=== PATIENT | female | born 1990 | race American Indian/Alaskan Native ===

== ENCOUNTER 2018-07-06 16:10 | Outpatient (CLI) | payer OTHER ==
[2018-07-06 16:36] VITALS: BP 114/67
[2018-07-06] MEDS ORDERED: LACTATED RINGERS 1,000 ML ONE (16:59)
[2018-07-06] MEDS ORDERED: ZOFRAN IM ONE (17:00)
[2018-07-06] MEDS ORDERED: LACTATED RINGERS 1,000 ML IV ONE (17:01)
[2018-07-06 19:43] LABS: Bacteria,Urine 1+ /HPF (Negative); Bilirubin,Urine NEG (Negative); Blood,Urine NEG (Negative); Color,Urine Yellow (Yellow); Protein,Urine <15 mg/dL mg/dL (Negative)
== END 2018-07-06 19:10 | disposition home or self-care (01) ==
LOC: TRG 16:10
PROVIDERS: ATTEND Obstetrics & Gynecology
DX: O47.1 False labor at or after 37 completed weeks of gestation (principal); Z3A.38 38 weeks gestation of pregnancy
CPT/HCPCS: 81001; J2405; J7120

== ENCOUNTER 2020-07-01 09:33 | Inpatient (IN) | payer OTHER ==
[2020-07-01] MEDS ORDERED: LOPERAMIDE 2 MG CAP PO PRN (10:23)
[2020-07-01] MEDS ORDERED: ePHEDrine SULFATE 50 MG/1 ML INJ IV PRN (10:23)
[2020-07-01] MEDS ORDERED: OXYTOCIN 10 UNIT/1 ML INJ IM PRN (10:23)
[2020-07-01] MEDS ORDERED: MINERAL OIL 30 ML ORAL LIQD PO PRN (10:23)
[2020-07-01] MEDS ORDERED: miSOPROStol 200 MCG TAB PR PRN (10:23)
[2020-07-01] MEDS ORDERED: CARBOPROST TROMETHAMINE 250 MCG/1 ML INJ IM PRN (10:23)
[2020-07-01] MEDS ORDERED: LACTATED RINGERS 1,000 ML IV SCH (10:30)
--- NOTE | 2020-07-01 10:31 | History and Physical Report ---
History of Present Illness Date of examination: 07/01/20 (Ctxs found to have elevated blood pressures) Date of admission: 07/01/2020 Chief complaint: I'm having ctxs. History of present illness: Pt states that she is having ctxs that started this morning and have gotten stronger. Upon admission to triage her blood pressures were noted to be 170's/90's. She has a history of pre eclampsia in last . EDC Confirmation: 07/09/2020 Gestational Age: 8 3/7 weeks Past History : 4 Term Births: 3 Premature Births: 0 Living Children: 3 Para: 3 Mult. Births: 0 Prev : 3 Prev. attempt? none Aborta: 0 Elect. Ab: 0 Spont. Ab: 0 Ectopics: 0 # 1 Delivery date: 2008 Weeks Gestation: 41 Delivery type: Infant Sex: Male weight: 8-11 Comments: Failure to progress # 2 Delivery date: 2011 Weeks Gestation: 38 Delivery type: Sex: Male weight: 7-11 # 3 Delivery date: 07/15/2018 Weeks Gestation: 39 Delivery type: Anesthesia type: epidural Delivery location: [facility] Sex: female weight: 8.75 Past Medical History: PreEclampsia Hypertension Past Surgical History: Reviewed history from 07/15/2018 and no changes required: negative X 3 Past Medical History Anesthesia Complications: negative Anemia: negative Autoimmune Disorder: negative Bleeding Disorder: negative Blood Transfusions: negative Breast Disease: negative Diabetes: negative Heart Disease: negative Hypertension: positive Hepatitis/Liver Disease: negative Kidney Disease/UTI: negative Neurologic/Epilepsy/Migraines: negative Phlebitis/Varicosities: negative Psychiatric: negative Pulmonary Disease/Asthma: negative Thyroid Disease: negative Hospitalizations: negative Surgery (Non-material distributor): negative X 3 Abnormal PAP: negative OSKAR Exposure: negative Infertility: negative Uterine Anomaly: negative Uterine Surgery (not C/S): negative Other Gynecologic Problems: negative Family Hx: Glaucoma, DM, HTN, CVA, Breast CA, Ovarian CA Social Hx: Marital Status: Children: 3 Occupation: unemployed Infection History Hx of STD: Trich HIV Risk Eval: low risk Hepatitis B Risk Eval: low risk Personal hx. of genital herpes: no Partner hx. of genital herpes: no Rash, Viral, or Febrile illness since last LMP? no Varicella/Chicken Pox Status: Immunized TB Risk: no Genetic History Congenital Heart Defect: Mom: no Dad: no Janet Disease: Mom: no Dad: no Thalassemia Mom: no Dad: no Neural Tube Defect Mom: no Dad: no Down's Syndrome Mom: no Dad: no Ashwin-Sachs Mom: no Dad: no Sickle Cell Disease/Trait Mom: no Dad: no Hemophilia Mom: no Dad: no Muscular Dystrophy Mom: no Dad: no Cystic Fibrosis Mom: no Dad: no Dhruv Chorea Mom: no Dad: no Mental Retardation Mom: no Dad: no Fragile X Mom: no Dad: no Other Genetic/Chromosomal Disorder Mom: no Dad: no Child w/other defect Mom: no Dad: no Enviromental Exposures Enviromental Exposures Reviewed Xray Exposure: no Medication, drug, or alcohol use since LMP: no Chemical/Other Exposure: no Exposure to Cat Liter: no Hx of Parvovirus (Fifth Disease): no Occupational Exposure to Children: none Active Medications (reviewed today): PLUS 27-1 MG ORAL TABLET ( VIT-FE FUMARATE-FA) 1 po qd FERROUSUL 325 (65 FE) MG ORAL TABLET (FERROUS SULFATE) Current Allergies (reviewed today): VICODIN (Critical) * ANAPHYYLAXIS (Critical) Past History Past Medical History: hypertension, other (Pre eclampsia in previous ) Past Surgical History: section (X 3) Family/Genetic History: diabetes, hypertension, stroke, cancer (Ovarian ), other (Glaucoma) Social history: no significant social history - Obstetrical History Expected Date of Delivery: 07/09/20 Actual Gestation: 38 Week(s) 6 Day(s) : 4 Para: 3 Hx # Term Pregnancies: 3 Number of Pregnancies: 0 Spontaneous Abortions: 0 Induced : 0 Number of Living Children: 3 Medications and Allergies Allergies Allergy/AdvReac Type Severity Reaction Status Date / Time acetaminophen [From Vicodin] Allergy Severe Anaphylaxis Verified 07/06/18 16:33 ceftizoxime [From Cefizox] Allergy Severe Anaphylaxis Verified 07/06/18 16:35 hydrocodone [From Vicodin] Allergy Severe Anaphylaxis Verified 07/06/18 16:33 Home Medications Medication Instructions Recorded Confirmed Last Taken Type Docusate Sodium [Colace] 100 mg PO BID PRN #60 capsule 07/01/20 Unknown Rx Ferrous Sulfate [Feosol 325 MG tab] 325 mg PO QDAY #60 tablet 07/01/20 Unknown Rx Ibuprofen [Motrin 800 MG tab] 800 mg PO Q8HR PRN #30 tablet 07/01/20 Unknown Rx Lidocain2.5%/Prilocai2.5% [Emla] 2 gm TP ONCE #1 tube 07/01/20 Unknown Rx oxyCODONE [roxiCODONE] 5 mg PO Q6HR PRN #30 tablet 07/01/20 Unknown Rx Active Meds: Active Medications Carboprost Tromethamine (Carboprost Tromethamine 250 Mcg/1 Ml Inj) 250 mcg IM ONCE PRN PRN Reason: Uterine Bleeding Citric Acid/Sodium Citrate (Bicitra Oral Liqd 30ml) 30 ml PO ONCE ONE Stop: 07/01/20 10:24 Ephedrine Sulfate (Ephedrine Sulfate 50 Mg/1 Ml Inj) 10 mg IV Q2M PRN PRN Reason: Hypotension Famotidine (Famotidine 20 Mg/2 Ml Inj) 20 mg IV ONCE ONE Stop: 07/01/20 10:24 Hydralazine HCl (Hydralazine 20 Mg/1 Ml Inj) 10 mg IV ONCE ONE Stop: 07/01/20 11:01 Lactated Ringer's (Lactated Ringers) 1,000 mls @ 125 mls/hr IV DIRECT MAXIMO Oxytocin/Sodium Chloride (Pitocin/Ns 30 Unit/500ml) 30 units in 500 mls @ 40 mls/hr IV TITR MAXIMO; Protocol Lactated Ringer's (Lactated Ringers) 1,000 mls @ 2,250 mls/hr IV PREOP MAXIMO Stop: 07/02/20 10:57 Cefazolin Sodium (Ancef/Sterile Water 2 Gm/20 Ml) 2 gm in 20 mls @ 80 mls/hr IV PREOP NR; Protocol Loperamide HCl (Loperamide 2 Mg Cap) 2 mg PO ONCE PRN PRN Reason: give with Hemabate Metoclopramide HCl (Metoclopramide 10 Mg/2 Ml Inj) 10 mg IV ONCE ONE Stop: 07/01/20 10:24 Mineral Oil (Mineral Oil 30 Ml Oral Liqd) 30 ml PO QHS PRN PRN Reason: Constipation Misoprostol (Misoprostol 200 Mcg Tab) 800 mcg MO ONCE PRN PRN Reason: Uterine Bleeding Oxytocin (Oxytocin 10 Unit/1 Ml Inj) 10 unit IM ONCE PRN PRN Reason: Uterine Bleeding Review of Systems All systems: negative - Vital Signs Vital signs: Vital Signs Pulse Pulse Ox 62 100 07/01/20 09:42 07/01/20 09:42 Temp Pulse Resp BP Pulse Ox 68 179/95 99 07/01/20 10:17 07/01/20 10:10 07/01/20 10:17 Pt denies POOLE, blurred vision, spots before her eyes, chest pain, shortness of breath, and upper abdominal pain. - Physical Exam Breasts: Positive: deferred Cardiovascular: Regular rate Lungs: Positive: Normal air movement Abdomen: Positive: normal appearance, soft, normal bowel sounds. Negative: distention, tenderness Genitourinary (Female): Positive: normal external genitalia, normal perenium Vulva: both: normal Vagina: Positive: normal moisture. Negative: discharge Cervix: Negative: lesion, discharge Uterus: Positive: normal size, normal contour Adnexa: both: normal Anus/Rectum: Positive: normal perianal skin, heme negative. Negative: rectal mass, hemorrhoids Extremities: Positive: normal Deep Tendon Reflex Grade: Normal +2 - Obstetrical FHR: category 1 Uterine Contraction Monitor Mode: External Cervical Dilatation: 0 Cervical Effacement Percentage: 0 station: -3 Uterine Contraction Pattern: Irregular Uterine Tone Measurement Phase: Resting Uterine Contraction Intensity: Mild Results Result Diagrams: 07/01/20 10:40 07/01/20 10:40 All other labs normal. GBS NEGATIVE LABS DRAWN AT FIRST VISIT: HBsAg Screen Negative Negative *1 RPR Non Reactive Non Reactive *2 Rubella Antibodies, IgG [L] <0.90 index Immune >0.99 *3 Non-immune <0.90 Equivocal 0.90 - 0.99 Immune >0.99 ABO Grouping O *4 Rh Factor Positive *5 Antibody Screen Negative Negative *6 WBC 9.1 x10E3/uL 3.4-10.8 *7 RBC 4.38 x10E6/uL 3.77-5.28 *8 Hemoglobin 11.1 g/dL 11.1-15.9 *9 Hematocrit 35.2 % 34.0-46.6 *10 MCV 80 fL 79-97 *11 MCH [L] 25.3 pg 26.6-33.0 *12 MCHC 31.5 g/dL 31.5-35.7 *13 RDW 15.3 % 11.7-15.4 *14 Platelets 286 x10E3/uL 150-450 *15 Neutrophils 66 % Not Estab. *16 Lymphs 24 % Not Estab. *17 Monocytes 9 % Not Estab. *18 Eos 1 % Not Estab. *19 Basos 0 % Not Estab. *20 ! Immature Cells <No Reported Value> *21 Neutrophils (Absolute) 5.9 x10E3/uL 1.4-7.0 *22 Lymphs (Absolute) 2.2 x10E3/uL 0.7-3.1 *23 Monocytes(Absolute) 0.9 x10E3/uL 0.1-0.9 *24 Eos (Absolute) 0.1 x10E3/uL 0.0-0.4 *25 Baso (Absolute) 0.0 x10E3/uL 0.0-0.2 *26 ! Immature Granulocytes 0 % Not Estab. *27 ! Immature Grans (Abs) 0.0 x10E3/uL 0.0-0.1 *28 ! NRBC <No Reported Value> *29 Hematology Comments: <No Reported Value> *30 Tests: (2) 431767 7+Alc-Unbund ([id number]) ! Amphetamines, Urine Negative ng/mL Jboams=8107 *31 Amphetamine test includes Amphetamine and Methamphetamine. Barbiturate Negative ng/mL Epzlug=159 *32 Benzodiazepines Negative ng/mL Wamtet=816 *33 Cannabinoid See Final Results ng/mL Cutoff=50 *34 Tests: (3) Cannabinoid Confirmation, Ur ([id number]) ! Cannabinoid [A] Positive Cutoff=50 *35 ! Carboxy THC GC/MS Conf 211 ng/mL Cutoff=15 *36 Tests: (4) 032152 7+Alc-Unbund (341036) ! Cocaine (Metab.) Negative ng/mL Umplfj=926 *37 Opiates Negative ng/mL Wmopsh=316 *38 Opiate test includes Codeine and Morphine only. Phencyclidine Negative ng/mL Cutoff=25 *39 ! Ethanol, Urine Negative % Cutoff=0.020 *40 Tests: (5) Comp. Metabolic Panel (14) ([id number]) Glucose 85 mg/dL 65-99 *41 BUN 7 mg/dL 6-20 *42 Creatinine 0.75 mg/dL 0.57-1.00 *43 ! eGFR If NonAfricn Am 109 mL/min/1.73 >59 *44 ! eGFR If Africn Am 125 mL/min/1.73 >59 *45 BUN/Creatinine Ratio 9 9-23 *46 Sodium 136 mmol/L 134-144 *47 Potassium 4.2 mmol/L 3.5-5.2 *48 Chloride 103 mmol/L 96-106 *49 Carbon Dioxide, Total [L] 18 mmol/L 20-29 *50 Calcium 9.2 mg/dL 8.7-10.2 *51 Protein, Total 6.4 g/dL 6.0-8.5 *52 Albumin [L] 3.8 g/dL 3.9-5.0 *53 Globulin, Total 2.6 g/dL 1.5-4.5 *54 A/G Ratio 1.5 1.2-2.2 *55 Bilirubin, Total 0.3 mg/dL 0.0-1.2 *56 Alkaline Phosphatase 61 IU/L 39-117 *57 AST (SGOT) 10 IU/L 0-40 *58 ALT (SGPT) 8 IU/L 0-32 *59 Tests: (6) LD Isoenzymes (185153) LDH 164 IU/L 119-226 *60 (LD) Fraction 1 27 % 17-32 *61 (LD) Fraction 2 34 % 25-40 *62 (LD) Fraction 3 22 % 17-27 *63 (LD) Fraction 4 8 % 5-13 *64 (LD) Fraction 5 9 % 4-20 *65 Tests: (7) Creatinine Clearance (362577) Creatinine, Urine 146.1 mg/dL Not Estab. *66 Creatinine, Ur 24hr 1607 mg/24 hr 800-1800 *67 Creatinine Clearance [H] 149 mL/min 88-128 *68 The above range is based on 1.73 square meter average body surface area. Tests: (8) Protein Total, Qn, 24-Hr Urine ([id number]) Protein,Total,Urine 21.7 mg/dL Not Estab. *69 Prot,24hr calculated [H] 239 mg/24 hr 30-150 *70 Tests: (9) HIV Ag/Ab with Reflex ([id number]) HIV Screen 4th Generation wRfx Non Reactive Non Reactive *71 Tests: (10) HCV Ab w/Rflx to Verification ([id number]) ! HCV Ab 0.1 s/co ratio 0.0-0.9 *72 Tests: (11) Comment: (868130) ! Comment: SPRCS *73 Non reactive HCV antibody screen is consistent with no HCV infection, unless recent infection is suspected or other evidence exists to indicate HCV infection. Tests: (12) Urine Culture, Routine ([id number]) Urine Culture, Routine Final report *74 Tests: (13) Result ([id number]) ! Result 1 No growth *75 Assessment and Plan 29 y.o. @ 38.6 wks, previous X3 (scheduled for 2/) presented to triage with c/o ctxs found to have elevated blood pressures 170's/90's. Consulted with Dr. Benson. Diagnosed with pre eclampsia. Pt to be admitted and prepped for rpt . probation and patrol agent aware. - Patient Problems (1) 38 to 41 weeks gestation of Onset Date: ~06/25/20 Current Visit: Yes Status: Acute Plan to address problem: EFM to monitor for distress. (2) Pre-eclampsia in third trimester Onset Date: ~07/01/20 Current Visit: Yes Status: Acute Plan to address problem: Admit to labor and delivery for pre eclampsia. Initiate IV. Draw Pre eclampsia labs Magnesium infusion ordered. Vigil catheter placement. Initiate Labetalol 200mg BID. (3) Previous delivery affecting Onset Date: ~07/01/20 Current Visit: Yes Status: Acute Plan to address problem: to be completed today d/t pre eclampsia. pre op medications ordered. RN to begin prep for .
[2020-07-01] MEDS ORDERED: BUPIVACAINE/PF (0.5%) 5 MG/1 ML 30 ML VIAL INFILTRATI ONE (10:45)
[2020-07-01] MEDS ORDERED: KETOROLAC 30 MG/1 ML INJ ONE (10:45)
[2020-07-01] MEDS ORDERED: BUPIVACAINE /DEX-WATER 0.75% (2 ML) AMPULE INFILTRATI ONE (10:45)
[2020-07-01] MEDS ORDERED: ONDANSETRON 4 MG/2 ML INJ ONE (10:45)
[2020-07-01] MEDS ORDERED: dexAMETHasone 20 MG/5 ML VIAL ONE (10:47)
[2020-07-01 10:56] LABS: Hematocrit 31.1 % (30.3-42.9); Hemoglobin 10.3 gm/dl (10.1-14.3); Mean Corpuscular HGB Conc 33 % (30-34); Mean Corpuscular Volume 78 fl (79-97); Platelet Count 203 K/mm3 (140-440); Red Blood Count 3.96 M/mm3 (3.65-5.03); Red Cell Distribution Width 16.9 % (13.2-15.2)
[2020-07-01] MEDS ORDERED: MAGNESIUM SULFATE 4 GM/100 ML BAG IV ONE (11:00)
[2020-07-01] MEDS ORDERED: OXYTOCIN DRIP 30 UNITS/500 ML BAG IV SCH (11:00)
[2020-07-01] MEDS ORDERED: BICITRA ORAL LIQD 30ML PO ONE (11:00)
[2020-07-01] MEDS ORDERED: FAMOTIDINE 20 MG/2 ML INJ IV ONE (11:00)
[2020-07-01] MEDS ORDERED: ceFAZolin/Water 2 GM/20 ML 2 GM/20 ML SYRINGE IV NR (11:00)
[2020-07-01] MEDS ORDERED: hydrALAZINE 20 MG/1 ML INJ IV ONE (11:00)
[2020-07-01 11:19] LABS: Alanine Aminotransferase 11 units/L (7-56)
[2020-07-01] MEDS ORDERED: HYDROmorphone 1 MG/1 ML INJ IV PRN (11:26)
[2020-07-01] MEDS ORDERED: ONDANSETRON 4 MG/2 ML INJ IV PRN (11:26)
[2020-07-01] MEDS ORDERED: diphenhydrAMINE 50 MG/ML VIAL IV PRN (11:26)
[2020-07-01] MEDS ORDERED: PROMETHAZINE 25 MG TAB PO PRN (11:26)
[2020-07-01] MEDS ORDERED: NalbUPHINE 10 MG/1 ML INJ IV PRN (11:26)
[2020-07-01] MEDS ORDERED: PROMETHAZINE 25 MG RECT SUPP PR PRN (11:26)
[2020-07-01] MEDS ORDERED: NALOXONE 0.4 MG/1 ML INJ IV PRN ×2 (11:26→13:29)
--- NOTE | 2020-07-01 11:27 | Anesthesia Day of Surgery ---
Anesthesia Day of Surgery - Day of Surgery Patient Examined: Yes Patient H&P Reviewed: Yes Patient is NPO: Yes Beta Blockers: No Cardiac Clearance: No Pulmonary Clearance: No Yaya's Test: N/A
--- NOTE | 2020-07-01 11:28 | Anesthesia Consultation ---
Anesthesia Consult and Med Hx Date of service: 07/01/20 - Airway Anesthetic Teeth Evaluation: Good Mallampati Class: Class III Intubation Access Assessment: Possibly Difficult - Pulmonary Exam CTA: Yes - Cardiac Exam Cardiac Exam: RRR - Pre-Operative Health Status ASA Pre-Surgery Classification: ASA2 Proposed Anesthetic Plan: Spinal Nerve Block: TAP - Pulmonary Hx Smoking: No Hx Asthma: No COPD: No Hx Pneumonia: No Hx Sleep Apnea: No - Cardiovascular System Hx Hypertension: No Hx Heart Attack/AMI: No Hx Angina: No - Central Nervous System Hx Seizures: No Hx Psychiatric Problems: No - Gastrointestinal Hx Gastroesophageal Reflux Disease: No - Endocrine Hx Renal Disease: No Hx End Stage Renal Disease: No Hx Insulin Dependent Diabetes: No Hx Non-Insulin Dependent Diabetes: No Hx Hypothyroidism: No Hx Hyperthyroidism: No - Hematic Hx Anemia: No Hx Sickle Cell Disease: No - Other Systems Hx Alcohol Use: No Hx Obesity: Yes
[2020-07-01] MEDS ORDERED: WATER FOR IRRIG STERILE 1,500 ML BOTTLE IR ONE (11:55)
[2020-07-01] MEDS ORDERED: SODIUM CHLORIDE 0.9% IRR 1,500 ML BOTTLE IR ONE (11:55)
[2020-07-01] MEDS ORDERED: METOCLOPRAMIDE 10 MG/2 ML INJ IV ONE (12:00)
--- NOTE | 2020-07-01 12:05 | Progress Note ---
Spinal Anesthesia Block - Spinal Anesthesia Block Start Time: 11:30 Stop Time: 11:40 Performed by:: JAIR CRAIG (Arlin DAMON) Procedure: Spinal anesthesia block is being performed for [C/S]. H&P, labs have been reviewed. Patient's questions and concerns have been answered. Informed consent has been performed. Timeout has was performed. Patient in sitting position on side of bed. Sterile prep and drape was performed. 3 mL 1% l idocaine skin wheal at L [3]-L [4]. Needle introducer advanced. 25-gauge spinal needle advanced, [+] CSF [-] blood. [Marcaine 12.75mg and Precedex 5mcg] Spinal dose was given. All needles removed. Patient tolerated procedure well.
[2020-07-01] MEDS ORDERED: LACTATED RINGERS 1,000 ML ONE (12:10)
[2020-07-01] MEDS ORDERED: PHENYLEPHRINE/NS 1,000 MCG/10 ML SYRINGE (OR USE) IV ONE (12:10)
[2020-07-01] MEDS ORDERED: LANOLIN/ZINC/DIMETHICONE (LANSINOH) 7 GM TP PRN (13:29)
[2020-07-01] MEDS ORDERED: WITCH HAZEL/ GLYCERIN PAD TP PRN (13:29)
--- NOTE | 2020-07-01 13:35 | Event Note ---
Date: 07/01/20 Pt states she has taken percocet in the past w/o any reaction, however, will change pain meds to oxycodone w/o the acetominophen.
--- NOTE | 2020-07-01 13:47 | Operative Report ---
Operative Report Operative Report: Date of procedure: 07/01/2020 Pre-operative diagnosis: 39 weeks gestation Elevated blood pressures Previous section x3 Desires permanent sterilization Family history of ovarian cancer Post-operative diagnosis: Same Procedure name(s): Repeat low transverse section via Pfannenstiel skin incision Bilateral tubal ligation via bilateral salpingectomy Surgeon: Dr. Benson Grain Picker: Feli Lopes CNM Anesthesia: Spinal EBL: 600 mL Urine output: 50 mL of clear urine out at end of procedure Fluids: 1350 mL Findings: Liveborn male infant weight 6 pounds 0 ounces Apgars of 8 and 9 at 1 and 5 minutes Grossly normal fallopian tubes bilaterally however some adhesions of the fallopian tube to the left adnexa on the left side Grossly normal ovaries bilaterally Normal uterus Indications: Patient presents for evaluation in triage for contractions was noted to have elevated blood pressures however was not noted to be in labor. It was decided at this time to proceed with delivery due to blood pressures being in the severe range all risk benefits and alternatives were discussed with the patient. Consents were signed and placed on the chart. Procedure: Patient was taking to the operating room. Patient was then prepped and draped in sterile fashion after anesthesia was found to be adequate. A low transverse skin incision was made with the scalpel through previous incisional scar and carried down to the underlying layer of fascia with the Bovie. The fascia was then incised in the midline and this incision was extended bilaterally with the Bovie. The superior aspect of the fascia was grasped with Kuldeep clamps tented upward and dissected off of the anterior rectus muscles with the scalpel. In similar fashion the inferior aspect of the fascia was grasped with Kuldeep clamps tented upward and dissected off of the anterior rectus muscles. The rectus muscles were then bluntly divided in the midline. The peritoneum was identified and entered into sharply.[The Omar retractor was placed.] A lower transverse uterine incision was made with the scalpel and extended bilaterally with blunt dissection. Artificial rupture of membranes was performed yielding [clear amniotic fluid]. The infant's head was then delivered atraumatically. The anterior shoulder and rest of infant delivered without difficulty. The umbilical cord was clamped x2. The cord was cut. The was then placed in sterile bassinet. [The cord blood was collected.] The plac enta was manually extracted in its entirety. The uterus was exteriorized and cleared of all clots and debris. The uterine incision was closed using 0 Vicryl in a running locking fashion. Several oeluro-nc-cfsnx sutures were used along incision line to secure excellent hemostasis.. Attention was then turned to the fallopian tubes. Fallopian tube was elevated cauterized transected and removed in its entirety. Fallopian tube was handed off for pathology. This was done bilaterally. Excellent hemostasis was noted bilaterally. The posterior cul-de-sac was copiously irrigated. The uterus was returned to the abdomen. The gutters were also irrigated. The Omar retractor was removed from the abdomen. The anterior rectus muscles were reapproximated using 3-0 Vicryl. The anterior rectus fascia was reapproximated using 0 Vicryl in a running fashion. The subcuticular fat was reapproximated using 2-0 Vicryl in a running fashion. The skin was reapproximated with a 4-0 Monocryl with a subcuticular stitch.. The patient tolerated the procedure well. Sponge lap and needle counts were all correct x3. Patient was taken to the recovery room awake and in stable condition.
[2020-07-01] MEDS: MAGNESIUM SULFATE 40GM/1000ML 40 GM/1,000 ML BAG IV SCH (14:04)
--- NOTE | 2020-07-01 16:30 | Post Anesthesia Evaluation ---
- Post Anesthesia Evaluation Patient Participated: Yes Airway Patent: Yes Stable Respiratory Function: Yes Nausea/Vomiting: No Temp > 96.8F: Yes Pain Manageable: Yes Adequeate Hydration: Yes Anesthesia Complications: No Block Receding Appropriately: Yes Patient on Ventilator: No
[2020-07-01] MEDS: ceFAZolin/NS 1 GM/50 ML 1 GM/50 ML BAG IV SCH (16:35)
[2020-07-01] MEDS: LACTATED RINGERS 1,000 ML IV SCH (20:20)
[2020-07-01 20:31] LABS: Bilirubin,Urine NEG (Negative); Blood,Urine LG (Negative); Color,Urine Yellow (Yellow); Mucus,Urine 1+ /HPF; Protein,Urine <15 mg/dL mg/dL (Negative); Urobilinogen,Urine < 2.0 mg/dL (<2.0)
[2020-07-01 20:33] LABS: RBC,Urine > 182.0 /HPF (0.0-6.0)
[2020-07-01] MEDS: SIMETHICONE 80 MG CHEW TAB PO PRN (22:20)
[2020-07-01] MEDS: KETOROLAC 30 MG/1 ML INJ IV PRN (22:20)
[2020-07-02] MEDS: ceFAZolin/NS 1 GM/50 ML 1 GM/50 ML BAG IV SCH (00:30)
[2020-07-02 01:38] LABS: Hematocrit 31.4 % (30.3-42.9)
[2020-07-02] MEDS: KETOROLAC 30 MG/1 ML INJ IV PRN (04:00)
--- NOTE | 2020-07-02 06:28 | Progress Note ---
Assessment and Plan Pt A&O X 3 Only c/o is being hungry. BP 160/90 Denies POOLE, blurred vision, chest pain. Baby to breast on rounds. Dressing D&I Will consult @ increasing Labetalol to 300BID Continue pathway Complete 24hrs MGSO4 Labetalol 300mg po BID ordered Subjective - Subjective Date of service: 07/02/20 ("I'm hungry!") Principal diagnosis: Day#1 s/p repeat c/s; PreE MGSO4 Patient reports: voiding normally (clear yellow urine to folley), pain well controlled : doing well (pt caring for NB) Objective - Vital Signs Latest vital signs: Vital Signs Temp Pulse Resp BP Pulse Ox 07/02/20 06:06 64 160/91 07/02/20 05:57 65 163/90 07/02/20 05:30 98.0 F 18 07/02/20 04:57 71 138/85 07/02/20 03:57 71 163/90 07/02/20 02:57 71 152/88 07/02/20 01:57 65 137/81 07/02/20 00:57 66 162/92 07/02/20 00:30 97.7 F 18 07/01/20 23:57 67 136/81 07/01/20 22:57 71 131/76 07/01/20 22:26 64 158/89 07/01/20 21:57 71 186/106 07/01/20 20:57 66 166/94 07/01/20 20:10 98.2 F 20 07/01/20 19:57 74 131/87 07/01/20 17:57 72 147/64 07/01/20 16:57 64 136/76 07/01/20 16:05 97.9 F 20 07/01/20 15:57 72 121/79 07/01/20 15:06 57 L 128/80 07/01/20 14:25 65 20 133/77 99 07/01/20 14:20 97.4 F L 63 18 144/88 98 07/01/20 14:05 56 L 18 142/84 98 07/01/20 13:50 52 L 18 145/93 98 07/01/20 13:35 65 21 150/102 96 07/01/20 13:29 49 L 15 124/79 99 07/01/20 13:26 51 L 18 119/65 98 07/01/20 13:23 97 F L 52 L 15 125/63 99 07/01/20 11:04 74 196/96 07/01/20 10:57 191/117 07/01/20 10:55 59 L 191/117 07/01/20 10:17 68 99 07/01/20 10:12 85 99 07/01/20 10:10 62 179/95 07/01/20 10:07 66 100 07/01/20 10:02 56 L 99 07/01/20 09:57 64 99 07/01/20 09:52 66 99 07/01/20 09:47 71 99 07/01/20 09:45 62 153/90 07/01/20 09:44 58 L 171/92 07/01/20 09:42 62 100 Intake and Output 07/01/20 07/01/20 07/02/20 14:59 22:59 06:59 Intake Total 1600 50 Output Total 367 534 0259 Balance 1449 Intake: IV 1600 50 ANCEF/NS 1 GM/50 ML 1 gm 50 In 50 ml @ 100 mls/hr IV Q8H [facility] Rx#:[id number] Output: Urine 559 415 7812 Indwelling Catheter 1974 Other: Total, Output Amount 600 550 Weight 239 lb Estimated Blood Loss 600 Patient Weight 07/02/20 06:59 Weight 239 lb - Exam Breasts: Present: normal Cardiovascular: Present: Regular rate Lungs: Present: Normal air movement Abdomen: Present: normal appearance, soft, normal bowel sounds Uterus: Present: normal, fundal height below umbilicus Extremities: Present: normal Incision: Present: normal, dry, intact, dressed - Labs Labs: Abnormal lab results 07/01/20 07/01/20 07/01/20 Range/Units 10:40 10:40 19:35 Hgb (10.1-14.3) gm/dl MCV 78 L (79-97) fl MCH 26 L (28-32) pg RDW 16.9 H (13.2-15.2) % Creatinine 0.5 L (0.6-1.2) mg/dL Magnesium 4.20 H (1.7-2.3) mg/dL Lactate Dehydrogenase 240 H (91-180) units/L Urine WBC (Auto) (0.0-6.0) /HPF 07/01/20 07/02/20 07/02/20 Range/Units 20:05 00:43 00:43 Hgb 10.0 L (10.1-14.3) gm/dl MCV (79-97) fl MCH (28-32) pg RDW (13.2-15.2) % Creatinine (0.6-1.2) mg/dL Magnesium 4.60 H (1.7-2.3) mg/dL Lactate Dehydrogenase (91-180) units/L Urine WBC (Auto) 9.0 H (0.0-6.0) /HPF
[2020-07-02] MEDS ORDERED: oxyCODONE /ACETAMINOPHEN 5-325MG TAB PO PRN (07:00)
[2020-07-02] MEDS: FERROUS SULFATE 325 MG TAB PO SCH (09:33)
[2020-07-02] MEDS: LACTATED RINGERS 1,000 ML IV SCH (10:35)
[2020-07-02] MEDS: MAGNESIUM SULFATE 40GM/1000ML 40 GM/1,000 ML BAG IV SCH (10:35)
[2020-07-02] MEDS ORDERED: DIPHtheria,PERTUSSIS(ACELL),TETANUS VACCINE/PF 0.5 ML VIAL IM ONE (13:30)
[2020-07-02] MEDS: oxyCODONE 5 MG TAB PO PRN (18:08)
[2020-07-02] MEDS: IBUPROFEN 800 MG TAB PO PRN (22:50)
[2020-07-03] MEDS: IBUPROFEN 800 MG TAB PO PRN ×2 (05:35→23:14)
[2020-07-03] MEDS: oxyCODONE 5 MG TAB PO PRN ×2 (05:48→20:42)
--- NOTE | 2020-07-03 08:14 | Progress Note ---
Assessment and Plan p doing well, carn for 's needs this morning. incision D&I, steristrips in place, fundus firm, lochia scant, postop H&H stable, no s/s anemia. b/p's 120-150's/70-90's on labetalol 300mg BID. denies POOLE, visual changes or epigastric pain. - Patient Problems (1) delivery delivered Current Visit: Yes Status: Acute Plan to address problem: advance activity as tolerated anticipate d/c home tomorrow if stable. (2) Pre-eclampsia in third trimester Onset Date: ~07/01/20 Current Visit: Yes Status: Acute Plan to address problem: s/p mag sulfate for neuro protection cont labetalol and monitoring blood pressures monitor or worsening s/s pre-e Subjective - Subjective Date of service: 07/03/20 Principal diagnosis: Day#2 s/p repeat c/s; PreE s/p MGSO4x 24hrs Patient reports: appetite normal, voiding normally, pain well controlled, flatus, ambulating normally, no dizzy ambulation, no nauseated : doing well, nursing well Objective - Vital Signs Latest vital signs: Vital Signs Temp Pulse Resp BP BP BP Pulse Ox 07/03/20 05:03 98.2 F 83 18 146/86 98 07/03/20 00:22 98.2 F 89 20 128/71 99 07/02/20 22:51 82 149/84 07/02/20 20:35 97.9 F 66 18 144/84 98 07/02/20 17:58 98.8 F 67 18 146/86 07/02/20 14:50 98.0 F 70 19 143/80 99 07/02/20 14:27 98.0 F 66 14 140/86 140/86 07/02/20 12:53 66 142/90 07/02/20 12:50 67 142/90 07/02/20 11:51 97.8 F 66 18 151/90 97 07/02/20 11:50 66 151/90 07/02/20 11:17 75 141/99 07/02/20 10:56 68 149/80 07/02/20 10:47 72 162/97 07/02/20 10:17 78 138/82 07/02/20 09:47 71 137/86 07/02/20 09:17 74 142/82 07/02/20 08:47 68 135/83 07/02/20 08:17 77 141/84 Intake and Output 07/02/20 07/03/20 07/03/20 23:59 07:59 15:59 Intake Total 680 480 Output Total 300 Balance 380 480 Intake: Oral 560 Intake, Free Water 120 480 Output: Urine 300 Void 300 Other: Total, Intake Amount 320 Total, Output Amount 300 # Voids Void 1 2 - Exam Breasts: Present: normal, Cardiovascular: Present: Regular rate Lungs: Present: Clear to auscultation, Normal air movement Abdomen: Present: normal appearance, soft. Absent: distention, tenderness Vulva: both: normal Uterus: Present: normal, firm, fundal height at umbilicus Extremities: Present: normal Deep Tendon Reflex Grade: Normal +2 Incision: Present: normal, dry, intact - Labs Labs: Abnormal lab results 07/02/20 07/02/20 07/02/20 Range/Units 07:22 11:40 18:55 Magnesium 5.50 H 5.60 H 3.60 H (1.7-2.3) mg/dL
[2020-07-03] MEDS: FERROUS SULFATE 325 MG TAB PO SCH (09:05)
[2020-07-03] MEDS: SIMETHICONE 80 MG CHEW TAB PO PRN ×2 (09:05→16:19)
[2020-07-03] MEDS ORDERED: MEASLES, MUMPS & RUBELLA 12,500 UNIT/0.5 ML VACCINE SUB-Q ONE (12:00)
[2020-07-03] MEDS ORDERED: FLU VACC QUAD 2020-2021 (6 months +)/PF 60 0.5 ML SYRINGE IM ONE (12:00)
--- NOTE | 2020-07-03 15:33 | Event Note ---
Date: 07/03/20 Pt still with elevated BPs on the Labetalol 300 mg bid. Will add procardia 30xl at this time q day and monitor for now. pt had prE with previous delivery that developed pp. Will want optimal BP control prior to d/c home.
[2020-07-03] MEDS: NIFEdipine XL 30 MG TAB PO SCH (16:01)
[2020-07-03 16:49] LABS: Amphetamine Screen,Urine Negative; Benzodiazepines Screen,Urine Negative; Cocaine Screen,Urine Negative; Methadone Screen,Urine Negative; Opiate Screen,Urine Negative
[2020-07-03 17:02] LABS: Cannabinoid Screen,Urine Positive
[2020-07-04] MEDS: oxyCODONE 5 MG TAB PO PRN ×3 (05:20→16:13)
--- NOTE | 2020-07-04 05:42 | Event Note ---
Date: 07/04/20 It appears had uds done that was positive for marijuana. Pt had uds orderd under this provider's name without this provider being aware that was also + for marijuana. As per notes, social sciences research scientist were contacted and complete consultation is pending.
[2020-07-04] MEDS: FERROUS SULFATE 325 MG TAB PO SCH (10:54)
[2020-07-04] MEDS: NIFEdipine XL 30 MG TAB PO SCH (10:54)
--- NOTE | 2020-07-04 12:21 | Discharge Summary ---
Providers - Providers Date of Admission: 07/01/20 10:30 Date of discharge: 07/04/20 (Pt desires to be discharged home.) Attending physician: ADAM CHENEY Primary care physician: DONNA PEDERSEN Hospitalization Reason for admission: other (Contractions, elevated blood pressures in triage) Delivery: Procedure: bilateral tubal ligation, repeat low transverse Episiotomy: none Laceration: none Incision: normal, dry, intact, other (No s/sx of infection noted. No drainage noted. ) Discharge diagnosis: IUP at term delivered [place] baby: male Pertinent studies: Pt denies POOLE blurred vision, spots before her eyes, chest pain, shortness of breath, and upper abdominal pain. Her blood pressure ranges since this AM have been 114-140's/60-80's. We discussed how to take a proper blood pressure and when to call the provider with questions and concerns. We also discussed taking blood pressure medication daily. During this hospital stay, pt tested positive for marijuana and has been seen by the manager social media. Per manager social media note, pt will have a follow up with [facility]. Hospital course: S: Pt doing well. Ambulating, voiding, and passing flatus okay. BC: BTL. O: VSS. I&O's adequate. Fundus firm, minimal bleeding noted. Incision: steri strips intact, no s/sx of infection, no drainage noted. H/H 10.0/31.4. A: 29 y.o. s/p rpt . S/p magnesium d/t pre eclampsia. In good condition and stable for discharge home. P: Discharge home with instructions. To schedule son's circumcision appointment in 1 week. To keep scheduled post op check in on Jul 12. Condition at discharge: Good Disposition: DC-01 TO HOME OR SELFCARE Plan - Discharge Medications Prescriptions: Docusate Sodium [Colace] 100 mg PO BID PRN #60 capsule PRN Reason: Constipation Lidocain2.5%/Prilocai2.5% [Emla] 2 gm TP ONCE #1 tube Ferrous Sulfate [Feosol 325 MG tab] 325 mg PO QDAY #60 tablet Labetalol HCl [Labetalol 300mg TAB] 300 mg PO BID #60 tablet Ibuprofen [Motrin 800 MG tab] 800 mg PO Q8HR PRN #30 tablet PRN Reason: Pain, Moderate (4-6) NIFEdipine XL [Procardia Xl] 30 mg PO QDAY #30 tablet oxyCODONE [roxiCODONE] 5 mg PO Q6HR PRN #30 tablet PRN Reason: Pain - Provider Discharge Summary Activity: routine, no sex for 6 weeks, no heavy lifting 4 weeks, no strenuous exercise Diet: routine Instructions: routine Additional instructions: [] Smoking cessation referral if applicable(refer to patient education folder for contact #) [] Refer to [facility]'s [facility] Booklet Call your doctor immediately for: * Fever > 100.5 * Heavy vaginal bleeding ( >1 pad per hour) * Severe persistent headache * Shortness of breath * Reddened, hot, painful area to leg or breast * Drainage or odor from incision. * Keep incision clean and dry at all times and follow doctor's instructions regarding bathing/showering Congratulations on your baby boy! Please keep your post op appointment that was scheduled on 07/12 so that we may check your incision and your blood pressure. Please schedule your son's circumcision appointment in 1 week. You have been prescribed EMLA cream. Please do not use this cream at home, but bring it with you to your son's circumcision appointment. If you have any questions or concerns after discharge, please do not hesitate to call the office at [phone]. Taking your blood pressure at home Please take your blood pressure once daily Take your blood pressure medication as written by your provider Taking your blood pressure with a wrist monitor: 1. Put the blood pressure cuff on your wrist. Make sure it is not on the bone of your wrist. 2. Sit with your legs uncrossed and feet flat on the ground. 3. Wait 5-10 minutes before taking your blood pressure. 4. If you wrist monitor requires you to put your arm across your chest: After 5-10 minutes, put your arm across your chest like you are about to say the pledge of kathya. Taking your blood pressure with a cuff monitor: 1. Put the blood pressure cuff on your arm. 2. Sit with your legs uncrossed and feet flat on the ground. Make sure your arm is relaxed on a table or your kitchen table and bent at a 90 degree angle. 3. After 5-10 minutes push the button to take your blood pressure. While you are at home, if you experience a headache, blurred vision, spots before your eyes, chest pain, shortness of breath, and pain in your upper belly, please call the on-call provider immediately. If your blood pressure is greater than or equal to 140/90, sit calmly and wait another 15 minutes and then retake your blood pressure. If your blood pressure is still 140/90 or greater and you have taken your blood pressure medication, call the family preservation worker provider for further instructions. - Follow up plan Follow up: DONNA PEDERSEN MD [Primary Care Provider] - 7 Days
[2020-07-04 12:32] VITALS: BP 140/70
== END 2020-07-04 16:18 | disposition home or self-care (01) | DRG 766 ==
LOC: TRG 09:33 → APU 09:36 → TRG 10:29 → APU 10:30 → LD 16:10 → OB 07-02 15:01
PROVIDERS: ADMIT Obstetrics & Gynecology; ATTEND Obstetrics & Gynecology
PROC: 10D00Z1 Extraction of Products of Conception, Low, Open Approach (ICD-10-PCS; principal; 2020-07-01)
PROC: 0UB70ZZ Excision of Bilateral Fallopian Tubes, Open Approach (ICD-10-PCS; 2020-07-01)
PROC: 3E0R3BZ Introduction of Anesthetic Agent into Spinal Canal, Percutaneous Approach (ICD-10-PCS; 2020-07-01)
DX: O34.211 Maternal care for low transverse scar from previous cesarean delivery (principal); O11.4 Pre-existing hypertension with pre-eclampsia, complicating childbirth; Z83.511 Family history of glaucoma; Z37.0 Single live birth; Z3A.39 39 weeks gestation of pregnancy; Z79.899 Other long term (current) drug therapy; Z88.1 Allergy status to other antibiotic agents; Z88.5 Allergy status to narcotic agent; Z83.3 Family history of diabetes mellitus; Z82.3 Family history of stroke; Z82.49 Family history of ischemic heart disease and other diseases of the circulatory system; Z20.822 Contact with and (suspected) exposure to COVID-19; Z30.2 Encounter for sterilization
CPT/HCPCS: 36415; 80307; 81001; 82565; 83615; 83735; 84450; 84460; 84550; 85014; 85018; 85027; 86592; 86850; 86900; 86901; 87086; 88302; 88307; G0378; J0360; J0690; J1100; J1885; J2370; J2405; J2765; J3475; J3490; J7120; U0003